=== PATIENT | female | born 1955 | race Caucasian/White ===

== ENCOUNTER 2018-03-20 07:10 | Emergency (ER) | payer OTHER ==
[~2018-03-20] VITALS: Ht 154.9 cm; Wt 65.8 kg
[~2018-03-20 07:10] MED LIST: ALBU90OI6 INH; BACPOLTO30 TP; CEPH500 PO; CHOL10002; CYCL10 PO; DULO60 PO; GABA100 PO; HYDACE5 PO; HYDACE5325 PO; HYDR1TAB94 PO; IBUP400 PO; IBUP600 PO; IBUP800 PO; LISI20 PO; LISI5 PO; MELO7.5 PO; METF500 PO; NAPR500 PO; Norco 10-325 T1 EACH PO; OMEP20ER PO; OXYACE5T PO; PRED10 PO; PROM25 PO; Prednisone10 MG PO; Prednisone20 MG PO; RXTRAM50 PO; Robaxin-750750 MG PO; TRAM50 PO; TRAZ100; TRAZ50 PO; VENL150ER PO; VENL37.5ER PO; Vistaril25 MG PO
[2018-03-20] MEDS ORDERED: IBUP800 PO (08:52)
== END 2018-03-20 09:01 | disposition home or self-care (01) ==
LOC: ER 07:10
DX: M25.552 Pain in left hip (principal); M25.551 Pain in right hip; E11.9 Type 2 diabetes mellitus without complications; I10 Essential (primary) hypertension; J44.9 Chronic obstructive pulmonary disease, unspecified; F17.200 Nicotine dependence, unspecified, uncomplicated; Z88.0 Allergy status to penicillin; Z88.5 Allergy status to narcotic agent; Z79.899 Other long term (current) drug therapy; Z79.84 Long term (current) use of oral hypoglycemic drugs; W19.XXXA Unspecified fall, initial encounter
CPT/HCPCS: 73523; 73562-LT

== ENCOUNTER 2018-04-20 19:23 | Emergency (ER) | payer OTHER ==
[~2018-04-20] VITALS: Ht 154.9 cm; Wt 61.2 kg
[2018-04-20] MEDS ORDERED: ACET500 PO (21:23)
[2018-04-20] MEDS ORDERED: LIDO700A20 TOP ×2 (21:23→22:20)
[2018-04-20] MEDS ORDERED: Arthritis Pai42.5 GM TOP ×2 (21:23→22:20)
[2018-04-20] MEDS ORDERED: ACETAMINOPHEN500 MG PO (22:20)
== END 2018-04-20 22:22 | disposition home or self-care (01) ==
LOC: ER 19:23
DX: G89.29 Other chronic pain (principal); M25.551 Pain in right hip; E11.9 Type 2 diabetes mellitus without complications; I10 Essential (primary) hypertension; J44.9 Chronic obstructive pulmonary disease, unspecified; Z88.0 Allergy status to penicillin; Z88.5 Allergy status to narcotic agent; Z79.899 Other long term (current) drug therapy; Z79.84 Long term (current) use of oral hypoglycemic drugs; F17.200 Nicotine dependence, unspecified, uncomplicated
CPT/HCPCS: 99283

== ENCOUNTER → 2018-06-02 | Outpatient (CLI) | payer OTHER ==
[~2018-06-02] MED LIST changes: +ACET500 PO; +ACETAMINOPHEN500 MG PO; +Arthritis Pai42.5 GM TOP; +LIDO700A20 TOP
== END ==
LOC: LAB SHORT 18:14 → LAB SRC 18:14
DX: N89.8 Other specified noninflammatory disorders of vagina (principal); R30.0 Dysuria
CPT/HCPCS: 87070; 87077; 87086; 87186; 87205

== ENCOUNTER 2019-03-22 20:32 | Observation (INO) | payer OTHER ==
[~2019-03-22] VITALS: Ht 154.9 cm; Wt 63.5 kg
[~2019-03-22 20:32] MED LIST changes: +ASPI81CH PO; +DULO30 PO; +METPRE4DP PO; +Norco 5-325 Ta1 EACH PO; +PRED20 PO
[2019-03-22 21:19] LABS: Source, Urine Clean Catch
[2019-03-22 21:25] LABS: Appearance, Urine Clear (Clear); Bilirubin, Urine Neg (Neg); Blood, Urine Neg (Neg); Color, Urine Yellow (P-Yellow); Glucose Qualitative, Urine Neg (Neg); Ketones, Urine Neg (Neg); Leukocyte Esterase, Urine Neg (Neg); Nitrite, Urine Neg (Neg); Protein, Urine Neg (Neg); Specific Gravity, Urine 1.015 (1.003-1.022); Urobilinogen, Urine NORM (Normal)
[2019-03-22 21:26] LABS: BASOPHILS ABSOLUTE AUTO 0.08 K/mm3 (0.00-0.23); BASOPHILS PERCENT AUTO 1 % (0-2); EOSINOPHILS ABSOLUTE AUTO 0.15 K/mm3 (0.00-0.68); EOSINOPHILS PERCENT AUTO 2 % (0-6); Hematocrit 39.8 % (33.0-51.0); Hemoglobin 12.8 g/dL (11.5-16.0); IMMATURE GRAN ABSOLUTE AUTO 0.02 K/mm3 (0.00-0.10); IMMATURE GRAN PERCENT AUTO 0 % (0-1); LYMPHOCYTES ABSOLUTE AUTO 4.93 K/mm3 (0.84-5.20); LYMPHOCYTES PERCENT AUTO 56 % (21-46); MONOCYTES ABSOLUTE AUTO 0.64 K/mm3 (0.16-1.47); MONOCYTES PERCENT AUTO 7 % (4-13); Mean Corpuscular HGB 30.5 pg (26.0-34.0); Mean Corpuscular HGB Conc 32.2 g/dL (31.5-36.5); Mean Corpuscular Volume 95 fL (80-100); Mean Platelet Volume 10.3 fL (9.1-12.4); NEUTROPHILS ABSOLUTE AUTO 2.93 K/mm3 (1.96-9.15); NEUTROPHILS PERCENT AUTO 34 % (41-73); Platelet Count 179 K/mm3 (150-400); RDW Coefficient Variation 13.5 % (11.7-14.2); RDW Standard Deviation 46.7 fL (35.1-46.3); White Blood Cell Count 8.75 K/mm3 (4.00-11.30)
[2019-03-22 21:39] LABS: U Amphetamine Screen Not Detected; U Barbituate Screen Not Detected; U Benzodiazapine Screen Not Detected; U Buprenorphine Screen Not Detected; U Cannabinoids Screen DETECTED; U Cocaine Screen Not Detected; U Methadone Screen Not Detected; U Methamphetamine Screen Not Detected; U Opiates Screen DETECTED; U Oxycodone Screen Not Detected; U Phencyclidine Screen Not Detected; U Propoxyphene Screen Not Detected
[2019-03-22 21:47] LABS: Alanine Aminotransfer (ALT/SGP 48 U/L (12-78); Albumin, Blood 3.8 g/dL (3.4-5.0); Albumin/Globulin Ratio 0.8 (0.8-1.8); Alk Phos 74 U/L (50-136); Anion Gap 9 mmol/L (6-16); Aspartate Aminotrans (AST/SGOT 48 U/L (12-37); Bilirubin, Total 0.2 mg/dL (0.1-1.0); Blood Urea Nitrogen 16 mg/dL (8-24); Bun/Creatinine Ratio 28.9 (12.0-20.0); CO2, Blood 23 mmol/L (21-32); Calcium, Blood 8.9 mg/dL (8.5-10.1); Chloride, Blood 111 mmol/L (98-108); Creatinine, Blood 0.55 mg/dL (0.40-1.00); Ethanol (Alcohol), Blood, Med 284 mg/dL; Globulin, Blood 4.6 g/dL (2.2-4.0); Glomerular Filtration Rate >60 (60-); Glucose, Blood 109 mg/dL (70-99); Potassium, Blood 3.7 mmol/L (3.5-5.5); Salicylate 4.2 mg/dL (2.8-20.0); Sodium, Blood 143 mmol/L (136-145); Total Protein, Blood 8.4 g/dL (6.4-8.2)
[2019-03-22 22:07] LABS: Acetaminophen, Random <2.0 ug/mL (10.0-30.0)
== END 2019-03-23 11:15 | disposition home or self-care (01) ==
LOC: ER 20:32 → EOR 20:33
PROVIDERS: ADMIT Emergency Medicine
DX: F32.9 Major depressive disorder, single episode, unspecified (principal); F10.229 Alcohol dependence with intoxication, unspecified; I10 Essential (primary) hypertension; E11.9 Type 2 diabetes mellitus without complications; J44.9 Chronic obstructive pulmonary disease, unspecified; F17.200 Nicotine dependence, unspecified, uncomplicated; Y90.8 Blood alcohol level of 240 mg/100 ml or more; Z88.1 Allergy status to other antibiotic agents; Z88.5 Allergy status to narcotic agent; Z79.899 Other long term (current) drug therapy; Z79.84 Long term (current) use of oral hypoglycemic drugs; Z79.82 Long term (current) use of aspirin
CPT/HCPCS: 36415; 80053; 81003; 81025; 84443; 85025; 99285; G0378; G0480